=== PATIENT | male | born 2000 | race African-American/Black ===

== ENCOUNTER 2019-03-22 01:39 | Emergency (ER) | payer OTHER ==
[~2019-03-22] VITALS: Ht 165.1 cm; Wt 68.0 kg
[2019-03-22 04:03] VITALS: BP 118/63
== END 2019-03-22 04:04 | disposition home or self-care (01) ==
LOC: ER 01:39
DX: S62.396A Other fracture of fifth metacarpal bone, right hand, initial encounter for closed fracture (principal); W22.8XXA Striking against or struck by other objects, initial encounter; Y93.89 Activity, other specified; Y92.89 Other specified places as the place of occurrence of the external cause; Y99.8 Other external cause status

== ENCOUNTER 2020-02-20 18:36 | Emergency (ER) | payer OTHER ==
[~2020-02-20] VITALS: Ht 165.1 cm; Wt 68.0 kg
[2020-02-20] MEDS ORDERED: IBU800 MG PO (18:53)
[2020-02-20] MEDS ORDERED: ANUSOL-HC25 MG RECTAL (19:27)
[2020-02-20 19:38] VITALS: BP 117/85
== END 2020-02-20 19:38 | disposition home or self-care (01) ==
LOC: ER 18:36
DX: K64.9 Unspecified hemorrhoids (principal)

== ENCOUNTER 2020-07-18 15:46 | Emergency (ER) | payer BC ==
[~2020-07-18] VITALS: Ht 165.1 cm; Wt 68.0 kg
[~2020-07-18 15:46] MED LIST: ANUSOL-HC25 MG RECTAL; IBU800 MG PO
[2020-07-18 15:47] VITALS: BP 127/78
[2020-07-18 16:59] LABS: ABSOLUTE NEUTROPHILS 3.7 thou/uL (1.4-8.2); BASOPHILS 0.6 % (0.0-2.0); EOSINOPHILS 0.5 % (0.0-3.0); HEMATOCRIT 40.4 % (42.0-52.0); HEMOGLOBIN 13.5 gm/dL (14.0-18.0); LYMPHOCYTES 20.2 % (24.0-44.0); MCH 29.2 pg (26.0-34.0); MCHC 33.4 g/dL (28.0-37.0); MCV 87.3 fL (80.0-100.0); MONOCYTES 7.5 % (1.0-8.0); PLATELET COUNT 184 thou/uL (150-400); POLYS 71.2 % (36.0-66.0); RBC 4.63 mil/uL (4.50-6.00); RDW 13.9 % (10.5-14.5); WBC 5.2 thou/uL (4.0-11.0)
[2020-07-18 17:00] LABS: URINE BILIRUBIN NEGATIVE (Negative); URINE BLOOD NEGATIVE (Negative); URINE CLARITY CLEAR; URINE COLOR YELLOW; URINE GLUCOSE-RANDOM* NEGATIVE (Negative); URINE KETONES NEGATIVE (Negative); URINE LEUKOCYTES-REFLEX NEGATIVE (Negative); URINE NITRITE-REFLEX NEGATIVE (Negative); URINE PROTEIN (DIPSTICK) NEGATIVE (Negative); URINE UROBILINOGEN 0.2 E.U./dl (0.2-1.0)
[2020-07-18 17:07] LABS: CALCIUM 9.2 mg/dL (8.5-10.1); POTASSIUM 4.2 mmol/L (3.5-5.1)
[2020-07-18 17:12] LABS: ALBUMIN 4.2 g/dL (3.4-5.0); DIRECT BILIRUBIN 0.2 mg/dL (<0.1-0.2); TOTAL BILIRUBIN 0.6 mg/dL (0.2-1.0); TOTAL PROTEIN 6.8 g/dL (6.4-8.2)
[2020-07-18] MEDS ORDERED: BENTYL 20 MG TA20 M1 PO (18:20)
== END 2020-07-18 18:52 | disposition home or self-care (01) ==
LOC: ER 15:46
PROVIDERS: Emergency Medicine
DX: Z20.2 Contact with and (suspected) exposure to infections with a predominantly sexual mode of transmission (principal); R10.84 Generalized abdominal pain; R51.9 Headache, unspecified; R68.81 Early satiety; Z79.1 Long term (current) use of non-steroidal anti-inflammatories (NSAID); Z79.899 Other long term (current) drug therapy

== ENCOUNTER 2020-12-03 17:20 | Emergency (ER) | payer OTHER ==
[~2020-12-03] VITALS: Ht 165.1 cm; Wt 65.8 kg
[~2020-12-03 17:20] MED LIST changes: +BENTYL 20 MG TA20 M1 PO
[2020-12-03] MEDS ORDERED: IBUPROFEN 600600 M1 PO (19:56)
[2020-12-03 20:08] VITALS: BP 120/65
== END 2020-12-03 20:08 | disposition home or self-care (01) ==
LOC: ER 17:20
DX: S80.02XA Contusion of left knee, initial encounter (principal); M79.642 Pain in left hand; M79.641 Pain in right hand; M25.512 Pain in left shoulder; Z79.1 Long term (current) use of non-steroidal anti-inflammatories (NSAID); Z79.899 Other long term (current) drug therapy; X58.XXXA Exposure to other specified factors, initial encounter; Y93.89 Activity, other specified; Y92.89 Other specified places as the place of occurrence of the external cause; Y99.8 Other external cause status

== ENCOUNTER 2021-04-06 10:43 | Emergency (ER) | payer OTHER ==
[~2021-04-06] VITALS: Ht 165.1 cm; Wt 62.1 kg
[2021-04-06 10:43] VITALS: BP 111/58
[~2021-04-06 10:43] MED LIST changes: +IBUPROFEN 600600 M1 PO
[2021-04-06] MEDS ORDERED: IBUPROFEN 600600 M1 PO (11:34)
== END 2021-04-06 11:37 | disposition home or self-care (01) ==
LOC: ER 10:43
DX: M25.511 Pain in right shoulder (principal); Z79.1 Long term (current) use of non-steroidal anti-inflammatories (NSAID); Z79.899 Other long term (current) drug therapy